=== PATIENT | female | born 2000 | race Hispanic/Latino ===

== ENCOUNTER 2020-09-02 23:05 | Emergency (ER) | payer SELFPAY ==
[2020-09-02] MEDS ORDERED: OCTYL 2-CYANOACRYLATE 1 EACH TP ONE (23:22)
[2020-09-02] MEDS ORDERED: TETANUS/DIPHTHERIA TOXOID [ADULT] 0.5 ML VIAL IM ONE (23:23)
== END 2020-09-03 00:12 | disposition home or self-care (01) ==
LOC: EDH 23:05
DX: S01.411A Laceration without foreign body of right cheek and temporomandibular area, initial encounter (principal); Z88.0 Allergy status to penicillin; W54.0XXA Bitten by dog, initial encounter; Y93.89 Activity, other specified; Y92.89 Other specified places as the place of occurrence of the external cause; Y99.8 Other external cause status
CPT/HCPCS: 12011; 90471; 90714

== ENCOUNTER 2020-09-04 14:58 | Emergency (ER) | payer SELFPAY ==
[2020-09-04 15:53] LABS: APPEARANCE,URINE Clear (CLEAR); BILIRUBIN,URINE Negative (NEGATIVE); GLUCOSE, URINE (UA) Negative (NEGATIVE); KETONES,URINE Negative (NEGATIVE); LEUKOCYTE ESTERASE ,URINE Trace (NEGATIVE); NITRATE,URINE Negative (NEGATIVE); OCCULT BLOOD,URINE Large (NEGATIVE); PH,URINE 8.5 (5.0-8.0); PROTEIN,URINE Negative (NEGATIVE); UROBILINOGEN,URINE 0.2 mg/dL (0.2-1.0)
[2020-09-04 15:56] LABS: COLOR,URINE Yellow (YELLOW); HCG,QUAL RESULT NEGATIVE (NEGATIVE)
[2020-09-04 15:58] LABS: BACTERIA,URINE Few /HPF (None Seen)
[2020-09-04 16:09] LABS: BASOPHILS % (AUTO) 0.4 % (0.0-5.0); EOSINOPHILS % (AUTO) 2.4 % (0.0-8.0); LYMPHOCYTES % (AUTO) 23.5 % (21.0-51.0); MEAN CORPUSCULAR HEMOGLOBIN 29.1 pg (27.0-33.0); MEAN CORPUSCULAR HGB CONC 33.1 g/dL (32.0-36.0); MEAN CORPUSCULAR VOLUME 88.1 fL (79-99); MONOCYTES % (AUTO) 6.4 % (3.0-13.0); PLATELET COUNT (AUTO) 399 K/uL (130-400); RED BLOOD CELL COUNT(AUTO) 4.77 MIL/uL (4.00-5.50)
[2020-09-04 16:15] LABS: CREATININE 0.7 mg/dL (0.5-1.5); POTASSIUM 3.8 mmol/L (3.5-5.1)
[2020-09-04 16:20] LABS: ALBUMIN 4.5 g/dL (3.5-5.0); BILIRUBIN,TOTAL 0.4 mg/dL (0.2-1.0); TOTAL PROTEIN, SERUM 8.3 g/dL (6.0-8.3)
[2020-09-04] MEDS ORDERED: IOHEXOL-350 50ML VIAL IV ONE (16:22)
[2020-09-04] MEDS ORDERED: CLINDAMYCIN 600 MG/D5% WATER 50 ML IV ONE (16:26)
[2020-09-04] MEDS ORDERED: VANCOMYCIN 1GM+NS 250ML 250 ML IV ONE (16:27)
[2020-09-04] MEDS ORDERED: DiphenhydrAMINE HCL 50 MG/ML VIAL ONE (17:23)
== END 2020-09-04 19:04 | disposition home or self-care (01) ==
LOC: EDH 14:58
DX: S01.451A Open bite of right cheek and temporomandibular area, initial encounter (principal); L03.211 Cellulitis of face; Z88.0 Allergy status to penicillin; Z87.891 Personal history of nicotine dependence; W54.0XXA Bitten by dog, initial encounter; Y93.89 Activity, other specified; Y92.89 Other specified places as the place of occurrence of the external cause; Y99.8 Other external cause status
CPT/HCPCS: 36415; 70487; 80053; 81001; 81025; 83605; 85025; 87040 ×2; 87070; 87076; 96365; 96366; 96368; 96375; 99285; J1200; J3370; J3490; Q9967